=== PATIENT | male | born 1985 | race African-American/Black ===

== ENCOUNTER 2020-07-07 19:35 | Emergency (ER) | payer BC ==
[~2020-07-07] VITALS: Ht 167.6 cm; Wt 102.3 kg
[2020-07-07] MEDS ORDERED: ACETAMINOPHEN 325 MG TABLET PO ONE (21:30)
[2020-07-07 21:53] LABS: COVID AG,FIA SOURCE NASOPHARYNGEAL
[2020-07-07 23:30] VITALS: BP 135/75
== END 2020-07-08 00:44 | disposition home or self-care (01) ==
LOC: EMS 19:40
DX: J02.9 Acute pharyngitis, unspecified (principal); Z20.828 Contact with and (suspected) exposure to other viral communicable diseases
CPT/HCPCS: 87426; 87430; 99283; U0003